=== PATIENT | female | born 1950 | race Caucasian/White ===

== ENCOUNTER 2016-06-15 03:25 | Inpatient (IN) | payer OTHER ==
[~2016-06-15] VITALS: Ht 162.6 cm; Wt 73.0 kg
[~2016-06-15 03:25] MED LIST: ADVAIR 250-501 EACH INH; CELEBREX200 M1 PO; CHANTIX0.5 M1 PO; LOSARTAN-HCTZ1 EACH PO; METOPROLOL SUCC50 M2 PO; PROAIR HFA8.5 GM INH; STIOLTO RESPIMAT4 GM INH; ZOCOR40 M1 PO
--- NOTE | 2016-06-15 14:22 | Admission Core Measures ---
Admission Meds I reviewed the following Meds: Current Medications Sig/Noemi Start time Last Medication Dose Stop Time Status Admin Acetaminophen 975 MG ONCE 06/15 0000 NR (Tylenol) 06/15 2359 Albuterol Sulfate See Dose Q2P PRN 06/15 1415 UNVr (Ventolin) Insts (1) Atorvastatin Calcium 20 MG 1700 06/15 1700 UNVr (Lipitor) Budesonide/ 2 PUF BID 06/15 2200 UNVr Formoterol Fumarate (Symbicort) Cefazolin Sodium 2,000 MG ONCE 06/15 0000 NR (Kefzol-Ancef Inj) 06/15 2359 Losartan Potassium 100 MG DAILY 06/16 1000 UNVr (Cozaar) Metoprolol Succinate 50 MG DAILY 06/16 1000 UNVr (Toprol Xl) Oxycodone HCl 10 MG ONCE 06/15 0000 NR (Roxicodone) 06/15 2359 Ropivacaine 500 ML ONCE ONE 06/15 1300 AC (NAROPIN) 06/17 0639 ON-Q Ball 1 BAG Tiotropium [place] 1 PUF DAILY 06/16 1000 UNVr (Spiriva) Varenicline 0.5 MG BID 06/15 2200 UNVr (Chantix) Dose Instructions: (1)Albuterol Sulfate (Ventolin): 1-2 PUF Acute Coronary Syndrome Inclusion Criteria ACS Diagnosis No Inpatient Core Measures LDL Reminder: If No, please order W/I first 24hr of stay Congestive Heart Failure Inclusion Criteria CHF Diagnosis No Cerebrovascular accident Inclusion Criteria CVA/TIA Diagnosis No Inpatient Core Measures Bedside Swallow Eval Reminder: If BSE failed, place ST order Antithrombotic Reminder: Order Antithrombotic Medication by end of day 2 Antithrombotic Reminder: Document Reason Antithrombotic Not ordered by end of day 2 AFIB/Flutter Reminder: If Present, add to problem list AFIB/Flutter Reminder: Order Anticoag Medication for pts with AFIB/Flutter Atherosclerosis Reminder: If Present, add to problem list LDL Reminder: If No, please order W/I first 24hr of stay PT Order Reminder: If No, please order Venous thromboembolism Inpatient Core Measures VTE Risk Factors: Age > 40, Surgery VTE Prophylaxis Ordered Inpt Mech & Pharm No Mech VTE prophylaxis d/t No contraindications No VTE Pharm Prophylaxis d/t No contraindications Inclusion Criteria - Per Current guidelines, there needs to be overlap - treatment for the first 5 days of Warfarin therapy. - Parenteral Anticoagulation (IV or SC) needs to be - given along with Warfarin therapy. VTE Diagnosis No VTE Type NONE VTE Confirmed by (Test) NONE Problem List As ranked by this Provider includes Assessment & Plan 1. Status post total knee replacement, left HOME MEDS Home Med List Albuterol Sulfate (Proair Hfa) 90 MCG HFA.AER.AD 1-2 PUF INH PRN ASTHMA ( Reported) Celecoxib (Celebrex) 200 MG CAPSULE 1 CAP PO DAILY INFLAMMATION (Reported) Fluticasone/Salmeterol (Advair 250-50 Diskus) 250 MCG-50 MCG/DOSE BLST.W.DEV 1 PUF INH BID COPD (Reported) Losartan/Hydrochlorothiazide (Losartan-Hctz 100-12.5 MG Tab) 100 MG-12.5 MG TABLET 1 TAB PO AD BP (Reported) Metoprolol Succinate (Unknown Strength) TAB.ER.24H 50 MG PO DAILY BP ( Reported) Simvastatin (Zocor*) 40 MG TABLET 1 TAB PO DAILY CHOLESTEROL (Reported) Tiotropium Br/Olodaterol HCl (Stiolto Respimat Inhal [place]) 2.5 MCG-2.5 MCG/ ACTUATION MIST.INHAL 1 PUFF INH DAILY COPD (Reported) Varenicline Tartrate (Chantix) 0.5 MG TABLET 1 TAB PO BID SMOKING CESSATION ( Reported)
--- NOTE | 2016-06-15 14:24 | Discharge Summary ---
Visit Information Visit Dates Admission Date: 06/15/16 Discharge Date: 06/22/16 Hospital Course Course Attending Physician: TL STARK MD Primary Care Physician: LUCY ARIAS,LAKESHA Tim Consulting Request: Consulting Specialty: Pulmonary Disease Hospital Course: Patient is a 65yo F who underwent elective Left Total Knee Replacement on [address] Stark. She tolerated the procedure well and was transferred to the general medical floor in stable condition. She progressed as expected, until POD #2, when she was noted to become hypoxic to 81% during ambulation. Her O2 requirements continued to increase to 4L. Bilateral LE dopplers were negative for DVT. There was some question of a filling defect on CTA of the chest, but repeat scan confirmed artifact and no evidence of PE. Pt was evaluated by Pulmonology and treated with steroids, nebulizers, and O2 therapy for COPD exacerbation and acute hypoxic respiratory failure. Complications: None Allergies: Coded Allergies: No Known Allergies (06/10/16) Significant Procedures: 06/15/2016 left total knee arthroplasty Disposition Summary Disposition Principal Diagnosis: Left knee OA/DJD Additional Diagnosis: None Discharge Disposition: home health services Discharge Instructions General Discharge Information Code Status: Full Code Patient's Diet: Resume normal diet Patient's Activity: Weight bearing as tolerated Daily physical therapy Follow-Up Instructions/Appts: Call office to schedule/confirm appointment Medications at Discharge Discharge Medications: Continue taking these medications: Simvastatin (Zocor*) 40 MG TABLET 1 Tablet ORAL DAILY Comments: DOCUMENTED PER CMR DURING PRE-SX INTERVIEW Metoprolol Succinate (Metoprolol Succinate) (Unknown Strength) TAB.ER.24H 50 Milligram ORAL DAILY Comments: TARTRATE/SUCCINATE NOT NOTED DURING PRE-SX INTERVIEW Losartan/Hydrochlorothiazide (Losartan-Hctz 100-12.5 MG Tab) 100 MG-12.5 MG TABLET 1 Tablet ORAL As Directed Comments: DOCUMENTED PER CMR DURING PRE-SX INTERVIEW Celecoxib (Celebrex) 200 MG CAPSULE 1 Capsule ORAL DAILY Comments: DOCUMENTED PER CMR DURING PRE-SX INTERVIEW Tiotropium Br/Olodaterol HCl (Stiolto Respimat Inhal [place]) 2.5 MCG-2.5 MCG/ ACTUATION MIST.INHAL 1 PUFF Inhale through mouth DAILY Comments: DOCUMENTED PER CMR DURING PRE-SX INTERVIEW Fluticasone/Salmeterol (Advair 250-50 Diskus) 250 MCG-50 MCG/DOSE BLST.W.DEV 1 Puff Inhale through mouth TWICE DAILY Comments: DOCUMENTED PER CMR DURING PRE-SX INTERVIEW Albuterol Sulfate (Proair Hfa) 90 MCG HFA.AER.AD 1-2 Puff Inhale through mouth as needed for ASTHMA Comments: DOCUMENTED PER CMR DURING PRE-SX INTERVIEW Varenicline Tartrate (Chantix) 0.5 MG TABLET 1 Tablet ORAL TWICE DAILY Comments: DOCUMENTED PER CMR DURING PRE-SX INTERVIEW Triamcinolone Acetonide (Nasacort) 55 MCG SPRAY NASAL Every Morning as needed for CONGESTION Cephalexin (Keflex) 500 MG CAPSULE 1 Capsule ORAL 4 TIMES A DAY Days = 10 Start taking the following new medications: Hydromorphone HCl (Dilaudid) 2 MG TABLET 1-2 Tablet ORAL Q4-6P as needed for PAIN Qty = 36 No Refills Polyethylene Glycol 3350 (Miralax) 17 GRAM POWD.PACK 1 Packet ORAL DAILY Qty = 14 Refills = 1 Instructions: dissolve in water Docusate Sodium (Colace) 100 MG CAPSULE 1 Capsule ORAL TWICE DAILY as needed for CONSTIPATION Qty = 30 No Refills Morphine Sulfate (Morphine Sulfate ER) 15 MG TABLET.ER 1 Tablet ORAL 2 x Daily as needed as needed for PAIN Qty = 3 No Refills Ondansetron (Zofran Odt) 4 MG TAB.RAPDIS 1 Tablet SUBLINGUAL THREE TIMES DAILY as needed for NAUSEA/VOMITING Qty = 10 No Refills Aspirin (Aspirin*) 325 MG TABLET 1 Tablet ORAL TWICE DAILY Qty = 120 No Refills Copies To: LUCY ARIAS,LAKESHA Tim
--- NOTE | 2016-06-15 14:25 | Patient Discharge Instructions ---
Discharge Instructions General Discharge Information You were seen/treated for: Left knee OA/DJD You had these procedures: 06/15/2016 left total knee arthroplasty Watch for these problems: Redness, swelling, fever, signs of infection. Uncontrolled pain, Excessive bleeding. Decreased range of motion or unable to bear weight. Chest pain, shortness of breath. Call Surgeon to remove: [place] (14 days) Do not soak the wound: Yes No bath, but you may shower: Yes Other wound care: Daily dry dressing changes or as needed Diet Continue normal diet: Yes Activity Activity Self Limited: Yes Activity Limited to: Weight bear as tolerated Additional ACTIVITY Info: Daily physical therapy Acute Coronary Syndrome Inclusion Criteria At DC or during hospital stay patient has or had the following: ACS DIAGNOSIS No Discharge Core Measures Meds if any: Prescribed or Continued at Discharge Meds if any: NOT Prescribed or Continued at Discharge Congestive Heart Failure Inclusion Criteria At DC or during hospital stay patient has or had the following: CHF DIAGNOSIS No Discharge Core Measures Meds if any: Prescribed or Continued at Discharge Meds if any: NOT Prescribed or Continued at Discharge Cerebrovascular accident Inclusion Criteria At DC or during hospital stay patient has or had the following: CVA/TIA Diagnosis No Discharge Core Measures Meds if any: Prescribed or Continued at Discharge Meds if any: NOT Prescribed or Continued at Discharge Venous thromboembolism Inclusion Criteria VTE Diagnosis No VTE Type NONE VTE Confirmed by (Test) NONE Discharge Core Measures - Per Current guidelines, there needs to be overlap - treatment for the first 5 days of Warfarin therapy. - If discharged on Warfarin prior to 5 days of - overlap therapy, the patient will need to be - assessed for post discharge needs including - *Post discharge parental anticoagulation - *Warfarin and/or parental anticoagulation education - *Follow up date to check INR post discharge At least 5 days overlap therapy as Inpatient No Meds if any: Prescribed or Continued at Discharge Note: Overlap Therapy is Warfarin and Anticoagulant Meds if any: NOT Prescribed or Continued at Discharge
[2016-06-15] MEDS ORDERED: COLACE100 M1 PO (14:27)
[2016-06-15] MEDS ORDERED: ASPIRIN325 M2 PO (14:27)
[2016-06-15] MEDS ORDERED: DILAUDID2 M1 PO (14:27)
[2016-06-15] MEDS ORDERED: MIRALAX17 G1 PO (14:27)
[2016-06-15] MEDS ORDERED: MORPHINE SULFAT15 M3 PO (14:28)
[2016-06-15] MEDS ORDERED: ZOFRAN ODT4 M1 SL (14:32)
--- NOTE | 2016-06-15 15:07 | Operative Report ---
Operative/Inv Procedure Report Surgery Date: 06/15/16 Name of Procedure: Left total knee replacement Pre-Operative Diagnosis: Primary left knee DJD Post-Operative Diagnosis: Same Estimated Blood Loss: 50ml to 100ml Surgeon/Undercover Agent: LINCOLN ARIAS,TL [place] Anesthesia: block Operative/Procedure Note Note: Description of Procedure: The patient was taken to the operating room and positively identified. After induction of spinal anesthesia and administration of appropriate pre-operative antibiotics, the patient was positioned supine on the operating room table and all bony prominences were well padded. A well-padded pneumatic tourniquet was placed on the left upper thigh. After performing a surgical timeout, the left lower extremity was prepped and draped in the usual sterile fashion. After exsanguination with Esmarch the tourniquet was inflated to 250mm of mercury. A standard medial parapatellar approach was made to the knee. This was carried down through skin and subcutaneous tissue to the level of the fascia. Meticulous hemostasis was maintained with Bovie electrocautery. The extensor mechanism and patellar retinaculum were opened sharply and the patella was everted. The infrapatellar fat was resected in order to improve exposure. Osteophytes were trimmed from the patella and femoral condyles and the patella was re-everted and tucked laterally. A medial release was performed and the cruciate ligaments were resected. The tibia was then subluxed anteriorly. Utilizing the appropriate extra-medullary guide, the proximal tibia was trimmed perpendicular to the long axis of the tibial shaft. Attention was then turned to the femur. After opening the medullary canal, the distal femoral cut was made in 6 degrees of valgus utilizing the appropriate intra-medullary guide. The extension gap was checked and found to be appropriate. The femur was then sized and the remainder of the femoral cuts were made with a size 3 4-in-1 femoral cutting guide. The flexion gap was checked and found to be symmetric and appropriate. The knee was then trialed with a size 3 femoral component, a size 3 tibial component and a size 11 mm TS polyethylene insert. The patella was not resurfaced due to its excellent preoperative condition. This yielded excellent range of motion, stability and patellar tracking. All trial components were removed and the knee was copiously irrigated with sterile saline. All components were cemented into place with [place] Simplex cement. All the components were of the [place] [employer] knee system of the above stated sizes. The knee was again irrigated after cementation. The extensor mechanism and patellar retinaculum were repaired using interrupted #1 vicryl suture. The skin was re-approximated with 2-0 vicryl and closed with kayla. A sterile dressing was applied, the tourniquet was deflated, the patient was awakened and taken to the recovery room in satisfactory condition.
[2016-06-15 17:05] VITALS: BP 144/84
[2016-06-15] MEDS ORDERED: NASACORT16.9 ML NS (18:23)
[2016-06-15 19:09] VITALS: BP 152/70
--- NOTE | 2016-06-15 20:25 | NUR ---
15:05- PT ARRIVED TO FLOOR VIA STRETCHER FROM PACU. REPORT RECEIVED FROM [employer]ET[employer] MANAGER. VSS. ON Q PUMP TO L ADDUCTOR CANAL @ 12 ML/HR. CARRANZA DRAINING CLEAR YELLOW URINE. DRESSING TO L KNEE C,D,I. ORIENTED TO ROOM AND CALL LIGHT FOR ASSIST.
[2016-06-15 21:10] VITALS: BP 124/64
[2016-06-15 23:46] VITALS: BP 118/64
--- NOTE | 2016-06-16 03:37 | NUR ---
On Q Pump to (L) adductor canal @5cm, site C/D/I. Rate increased to 14ml/hr per MD order, pain medications given for pain 01/05. VSS, afebrile. PAtient remains anxious as she states 'This was supposed to be pain free, these meds are supposed to keep me pain free.' This RN discussed with patient that pain will be managed, but pain does not 'disappear' with use of pain medications. Does report instant relief from IV Dilaudid. Will continue to monitor.
[2016-06-16 04:00] VITALS: BP 128/70
[2016-06-16 08:29] LABS: ABSOLUTE BASOPHIL COUNT 0 /CUMM (0.0-0.2); ABSOLUTE EOSINOPHIL COUNT 0.2 /CUMM (0.0-0.7); ABSOLUTE GRANULOCYTE CT 9.6 /CUMM (1.4-6.5); ABSOLUTE LYMPH COUNT 1.3 /CUMM (1.2-3.4); ABSOLUTE MONOCYTE COUNT 0.8 /CUMM (0.10-0.60); BASOPHIL % 0.3 % (0.0-2.0); EOSINOPHIL % 1.7 % (0-5); GRANULOCYTE % 80.5 % (42.2-75.2); HEMATOCRIT 35.3 % (37-47); MEAN CORPUSCULAR HGB 30.6 PG (27.0-31.0); MEAN CORPUSCULAR HGB CONC 33.5 G/DL (33.0-37.0); MEAN CORPUSCULAR VOLUME 91.3 FL (81.0-99.0); PLATELET COUNT 253 /CUMM (130-400); RED BLOOD CELL CT 3.87 /CUMM (4.20-5.40); WHITE BLOOD CELL COUNT 11.9 /CUMM (4.8-10.8)
--- NOTE | 2016-06-16 10:15 | RADIOLOGY REPORT ---
EXAMINATION: XR KNEE, LEFT CLINICAL INFORMATION: Status post left TKA COMPARISON: None. TECHNIQUE: 2 views of the left knee FINDINGS: There is a total left knee arthroplasty. The distal femoral component articulates appropriately with the tibial plateau and patellar components. No periprosthetic lucency or fracture. Postoperative soft tissue gas noted. Prominent gas extends distally beyond the [id number] of this study. Overlying skin kayla anteriorly. IMPRESSION: Total left knee arthroplasty in typical positioning and alignment.
--- NOTE | 2016-06-16 10:16 | NUR ---
Physical Therapy: Patient refused treatment session secondary to significant complaints of pain. Surgical PA asked PT to try coming back again later. Will follow-up as a appropriate.
--- NOTE | 2016-06-16 10:22 | PN- Orthopedic ---
Subjective Subjective: Pt just returned from xray She is in significant pain, angry that she received pain meds late Denies any nausea Objective Vital Signs and I&Os Vital Signs Date Time Temp Pulse Resp B/P Pulse O2 O2 Flow FiO2 Ox Delivery Rate 06/16 0400 98.2 98 18 128/70 93 Nasal 2.0L Cannula 06/16 0000 Nasal 2.0L Cannula 06/15 2346 98.1 92 20 118/64 94 Nasal Cannula 06/15 2110 98.2 94 20 124/64 92 Nasal Cannula 06/15 1909 97.5 96 20 152/70 94 Nasal Cannula 06/15 1847 94 Nasal 2.0L Cannula 06/15 1832 Nasal 2.0L Cannula 06/15 1705 98.1 85 18 144/84 94 Nasal 2.0L Cannula Intake & Output 06/16 1600 06/16 0800 06/16 0000 06/15 1600 06/15 0800 06/15 0000 Intake Total 800 1850 Output Total 350 200 Balance 450 1650 Intake, IV 600 1100 Intake, Oral 200 750 Output, Urine 350 200 Patient 161 lb Weight Physical Exam: vss afebrile General: alert and oriented, angry and in pain at surgical site Chest: clear anteriorly bilaterally Abd: soft, good bs Ext: warm, no edema, positive sensate, no calf tenderness Wound: dressed, dry, on Q in place Neuro: tremor - chronic per patient Current Medications: Current Medications Sig/Noemi Start time Last Medication Dose Route Stop Time Status Admin Acetaminophen 650 MG Q4P PRN 06/15 1730 AC PO Acetaminophen 975 MG ONCE 06/15 0000 DC PO 06/15 2359 Albuterol Sulfate 2 PUF Q4-6 PRN PRN 06/15 1415 AC INH Aspirin 325 MG BID 06/15 2200 AC 06/15 PO 2104 Atorvastatin Calcium 20 MG 1700 06/15 1700 AC 06/15 PO 1951 Budesonide/ 2 PUF BID 06/15 2200 AC 06/15 Formoterol Fumarate INH 2115 Cefazolin Sodium 2 GM IQ8 06/15 1600 DC N/A 1 UNIT IV 06/16 0029 Cefazolin Sodium 2 GM IQ8 06/15 1600 DC 06/16 N/A 1 UNIT IV 06/16 0029 0331 Cefazolin Sodium 2,000 MG ONCE 06/15 0000 DC IV 06/15 2359 Diphenhydramine HCl 50 MG .STK-MED ONE 06/15 1511 DC IM 06/15 1512 Docusate Sodium 100 MG DAILY AC 06/16 0700 AC 06/16 PO 0612 Fentanyl Citrate 100 MCG .STK-MED ONE 06/15 1221 DC IM 06/15 1222 Fluticasone 1 SPRAY DAILY NEEDED 06/15 1845 AC Propionate [place] Hydrochlorothiazide 12.5 MG DAILY 06/16 1000 AC PO Hydromorphone HCl 2 MG Q3P PRN 06/16 1030 UNVr IV Hydromorphone HCl 2 MG Q4P PRN 06/15 1730 AC PO Hydromorphone HCl 4 MG Q4P PRN 06/15 1730 AC PO Hydromorphone HCl 0.5 MG Q3P PRN 06/15 1730 DC 06/16 IV 0804 Ketorolac 30 MG ONCE ONE 06/16 1015 UNVr Tromethamine IV 06/16 1016 Ketorolac 15 MG Q8P PRN 06/15 1730 DC Tromethamine IM 06/18 1717 Losartan Potassium 100 MG DAILY 06/16 1000 AC PO Metoprolol Succinate 50 MG DAILY 06/16 1000 AC PO Midazolam HCl 4 MG .STK-MED ONE 06/15 1246 DC IM 06/15 1247 Nicotine 21 MG DAILY 06/15 1806 AC TOP Ondansetron HCl 4 MG Q6P PRN 06/15 1730 AC IV Ondansetron HCl 4 MG .STK-MED ONE 06/15 1608 DC IV 06/15 1609 Oxycodone HCl 10 MG .STK-MED ONE 06/15 1607 DC PO 06/15 1608 Oxycodone HCl 10 MG ONCE 06/15 0000 DC PO 06/15 2359 Polyethylene Glycol 17 GM DAILY 06/16 1000 AC PO Ropivacaine 500 ML ONCE ONE 06/15 1300 DC ON-Q Ball 1 BAG INJ 06/17 0639 Sodium Chloride 1,000 ML .[id number] 06/15 1730 AC 06/16 IV 0543 Tiotropium [place] 1 PUF DAILY 06/16 1000 AC INH Tranexamic Acid 2,000 MG .STK-MED ONE 06/15 1221 DC IV 06/15 1222 Varenicline 0.5 MG BID 06/15 2200 AC 06/15 PO 2104 Assessment/Plan Assessment/Plan 65 yo female s/p L TKR pod 1 Pain management Increase breakthrough dilaudid to 2mg IV q3p Toradol - 30mg IV now dilaudid po Will add ms contin later today - do not want to give at same time as above Will discuss with nursing - pt is upset Core Measures/Miscellaneous Venous Thromboembolism VTE Risk Factors: Age > 40, Surgery VTE Contraindications: No Contraindications VTE Prophylaxis Ordered Inpt: Mech & Pharm VTE Diagnosis: No VTE Type: NONE VTE Confirmed by (Test): NONE Beta Lois Is Beta Lois a Home Med? Yes If Yes, Was This Ordered Today? Yes Antibiotics Is Patient on Antibiotics? No
[2016-06-16 14:19] VITALS: BP 114/80
[2016-06-16 22:14] VITALS: BP 118/70
[2016-06-17 06:30] VITALS: BP 112/68
--- NOTE | 2016-06-17 07:38 | PN- Orthopedic ---
Subjective Subjective: The patient was seen this morning postoperatively day #2. She reports that her pain is a little better than yesterday but still not adequately controlled with current pain regiment. She no other complaints current time and denied any chest pain or difficulty breathing. Objective Vital Signs and I&Os Vital Signs Date Time Temp Pulse Resp B/P Pulse O2 O2 Flow FiO2 Ox Delivery Rate 06/17 0630 98.5 90 22 112/68 95 Nasal Cannula 06/17 0000 92 Nasal 2.5L Cannula 06/16 2214 98.3 95 22 118/70 92 Nasal 2.5L Cannula 06/16 1419 98.5 100 18 114/80 90 Nasal 2.0L Cannula 06/16 1111 98 140/68 06/16 1110 98 140/68 06/16 0800 Nasal 2.0L Cannula Intake & Output 06/17 0800 06/17 0000 06/16 1600 06/16 0800 06/16 0000 06/15 1600 Intake Total 500 9979 823 8376 Output Total 526 747 0332 350 200 Balance -850 100 0 450 1650 Intake, IV 300 958 761 4790 Intake, Oral 200 600 200 750 Number 0 Bowel Movements Output, Urine 375 124 2164 350 200 Patient 161 lb Weight Physical Exam: Gen.: Alert and in no obvious distress Skin: Warm and dry Extremities: Bilateral lower extremities are warm without calf tenderness or significant edema. Gross motor and sensory were intact. Left knee surgical dressing was changed and slightly blood-tinged otherwise intact. The incision was healing well without signs of infection and surgical clips were in place. Assessment/Plan Assessment/Plan Assessment: 65-year-old female status post left total knee arthroplasty postoperative day #2. The patient is progressing as expected however pain still remains an issue for her. Plan: Add Valium 5 mg by mouth 3 times a day when necessary to current pain regiment Out of bed and ambulate with physical therapy GI and DVT prophylaxis Daily dry dressing change to surgical site Follow-up PT recommendations with regards discharge planning Core Measures/Miscellaneous Venous Thromboembolism VTE Risk Factors: Age > 40, Surgery VTE Contraindications: No Contraindications VTE Prophylaxis Ordered Inpt: Mech & Pharm VTE Diagnosis: No VTE Type: NONE VTE Confirmed by (Test): NONE Beta Lois Is Beta Lois a Home Med? Yes If Yes, Was This Ordered Today? Yes Antibiotics Is Patient on Antibiotics? No
[2016-06-17 13:34] VITALS: BP 130/70
[2016-06-17 22:19] VITALS: BP 112/58
[2016-06-18 07:05] VITALS: BP 128/60
--- NOTE | 2016-06-18 11:39 | NUR ---
0930-PT COMPLAINING OF SOB. ON 2L NC AT 88%. VENTOLIN INH GIVEN. LUNGS DIMINISHED/WHEEZY AT BASES. SURG MI QUIGLEY NOTIIFED. RESPIRATORY CARE ORDERED. 1000-RESPIRATORY AT BEDSIDE. O2 2L @ 92%. HR 100-110. INHALERS REVIEWED WITH PATIENT. SURG MENDEZ QUIGLEY NOTIFIED OF ABOVE AND TO ASSESS AT BEDSIDE. 1100- PT ASSESSED BY SURG MENDEZ. CXR AND ULTRASOUND OF LLE ORDERED. PT WITH +1 EDEMA TO L LEG.
[2016-06-18] MEDS ORDERED: KEFLEX500 M1 PO (12:14)
--- NOTE | 2016-06-18 12:19 | PN- Orthopedic ---
Subjective Subjective: Pt had an episode of hypoxia yesterday to 81%, requiring initiation of O2 via nasal cannula. She was relatively stable overnight, but desat to 87% today on 2L upon ambulation. Pt smoked daily until just before surgery. She reports that she typically uses her inhalers at around 4am everyday. Per nursing reports, she exibits significant anxiety in the morning while she awaits her inhalers. At this time, pt denies significant pain or shortness of breath. She is eating well and voids spontaneously. Denies WALKER, dizziness, CP, cough. Objective Vital Signs and I&Os Vital Signs Date Time Temp Pulse Resp B/P Pulse O2 O2 Flow FiO2 Ox Delivery Rate 06/18 0942 88 142/70 06/18 0942 88 142/70 06/18 0705 98.1 94 20 128/60 93 Nasal 2.0L Cannula 06/18 0000 Nasal 2.0L Cannula 06/17 2219 98.5 99 20 112/58 93 Nasal 2.0L Cannula 06/17 1600 Nasal 2.0L Cannula 06/17 1334 98.8 91 20 130/70 93 Nasal 2.0L Cannula Intake & Output 06/18 1600 06/18 0800 06/18 0000 06/17 1600 06/17 0800 06/17 0000 Intake Total 309 086 1802 400 500 Output Total 724 261 3006 850 400 Balance -360 -560 750 -450 100 Intake, IV 100 300 Intake, Oral 117 085 9567 300 200 Number 0 Bowel Movements Output, Urine 657 435 9402 850 400 Physical Exam: Gen.: Patient is awake and alert. She appears in no acute distress. Cardiac: Regular, but slightly tachycardic. Heart rate during my exam was 102. Pulmonary: Lungs are clear to auscultation bilaterally. Decreased breath sounds are noted at the bases. No significant rails or wheezing are appreciated, but patient just had a respiratory treatment prior to my arrival. Abdomen: Soft, but moderately distended. No significant tenderness. Extremities: There is left lower extremity edema, within expected limits. Dressing is clean, dry, and intact. No significant erythema or drainage or appreciated. tenderness is appreciated. Strength of dorsiflexion and plantar flexion are 4-5. No labs were done yesterday or today. Assessment/Plan Assessment/Plan Patient is a 65-year-old female with a history of COPD, asthma, hypertension, and hyperlipidemia, who recently quit smoking just prior to surgery and is now postoperative day #3 status post left total knee replacement. Her postoperative course was uncomplicated until yesterday when her O2 requirements increased. He is not on oxygen at home preoperatively. Plan: -Hold discharge. -TRC's renewed. Encourage incentive spirometer. -Check CTA of the chest to rule out PE. This will also identify any other acute pulmonary issue. Consider medicine consult if negative for additional recommendations. ?Should B lois induced bronchospasm be considered? -Also check a CBC. The WBC on 06/16/16 was 11.9. Patient states that she was on antibiotics prior to admission for a UTI. This is not listed on her home med rec list, but according to pharmacy claim history, it appears she was started on cephalexin 500 mg 4 times a day 10 days. We will restart this now. -Continue pain control with po dilaudid as needed. -ASA 325 bid for DVT ppx. -Bowel regimen with Colace and Miralax. Still awaiting BM. -This was discussed with Dr. Cole, who will be in to see the pt sometime today. Core Measures/Miscellaneous Venous Thromboembolism VTE Risk Factors: Age > 40, Surgery VTE Contraindications: No Contraindications VTE Prophylaxis Ordered Inpt: Mech & Pharm VTE Diagnosis: No VTE Type: NONE VTE Confirmed by (Test): NONE Beta Lois Is Beta Lois a Home Med? Yes If Yes, Was This Ordered Today? Yes Antibiotics Is Patient on Antibiotics? Yes
[2016-06-18 13:47] VITALS: BP 122/70
--- NOTE | 2016-06-18 14:49 | CT SCAN REPORT ---
EXAMINATION: CT CHEST PE STUDY CLINICAL INFORMATION: Hypoxia. Evaluate for pulmonary embolism. History of left breast cancer. COMPARISON: None. TECHNIQUE: Prior to contrast administration, localization images were obtained. After the administration of 95 mL of intravenous Optiray 350, multidetector CT volume acquisition of the chest was performed. 3-D postprocessing was performed with multiplanar reconstructions and MIP images obtained at the acquisition workstation. DLP: 473.74 mGy-cm. FINDINGS: Pulmonary arteries: The bolus timing on this study is acceptable for visualization of the pulmonary arterial tree. In a segmental branch of the right upper lobe pulmonary artery (series 4, image 183 - 178), an elongated long segment filling defect is seen. This finding is indeterminate as there is no associated enlargement of this vessel and the distal branches of this vessel appear to enhance normally. There is also extensive horizontally oriented beam hardening artifact seen in this region, which may be accounting for this finding as well. There are no additional intraluminal pulmonary arterial filling defects present to suggest pulmonary embolism. Lungs: There appears to be mild centrilobular emphysema. Underlying the left breast in the anterior left upper lobe and lingula, subpleural reticular opacities with tiny cyst formations are noted, consistent with post radiation fibrosis. There are bibasilar areas of mild volume loss and atelectasis. No pulmonary nodules, masses, pleural effusion or pneumothorax. The central airways are patent. Aorta and heart: The heart is normal in size. The mediastinum, aorta and great vessels are normal. There is no pericardial effusion Lymphatic structures: There is no lymphadenopathy. Breasts: There are postoperative changes seen in the upper outer quadrant of the left breast, consistent with prior lumpectomy. Upper abdomen: There is a 2.3 cm diameter left adrenal mass with mean attenuation values of 23.2 Hounsfield units. There is a smaller 1.9 x 1.5 cm right adrenal mass, with mean attenuation values of 39 Hounsfield units. These masses are indeterminate in etiology. Limited evaluation of the upper abdominal viscera demonstrates no other focal abnormality. Bones: Multilevel moderate vertebral spondylosis is seen. IMPRESSION: 1. Subtle long segment filling defect is seen within a branch of the right upper lobe pulmonary artery. As discussed above, it is unclear whether this represents a nonocclusive pulmonary embolism versus artifact related to extensive beam hardening. Remainder of the pulmonary arterial tree unremarkable with no evidence of pulmonary embolism seen. 2. Mild emphysema with bibasilar subsegmental atelectasis and changes of postradiation fibrosis in the anterior and anterolateral left upper lung. 3. Bilateral indeterminate adrenal masses are seen. Further characterization with adrenal CT scan with and without contrast is recommended. 4. Status post left breast lumpectomy.
[2016-06-18 15:04] LABS: ABSOLUTE BASOPHIL COUNT 0.1 /CUMM (0.0-0.2); ABSOLUTE EOSINOPHIL COUNT 0.5 /CUMM (0.0-0.7); ABSOLUTE GRANULOCYTE CT 8.1 /CUMM (1.4-6.5); ABSOLUTE LYMPH COUNT 1.4 /CUMM (1.2-3.4); ABSOLUTE MONOCYTE COUNT 0.9 /CUMM (0.10-0.60); BASOPHIL % 0.5 % (0.0-2.0); EOSINOPHIL % 4.6 % (0-5); GRANULOCYTE % 73.9 % (42.2-75.2); HEMATOCRIT 31.5 % (37-47); MEAN CORPUSCULAR HGB 30.4 PG (27.0-31.0); MEAN CORPUSCULAR VOLUME 92.1 FL (81.0-99.0); MEAN PLATELET VOLUME 7.5 FL (7.4-10.4); PLATELET COUNT 248 /CUMM (130-400); RBC DISTRIBUTION WIDTH 14.5 % (11.5-14.5); RED BLOOD CELL CT 3.42 /CUMM (4.20-5.40); WHITE BLOOD CELL COUNT 10.9 /CUMM (4.8-10.8)
--- NOTE | 2016-06-18 16:12 | NUR ---
1600-PER DR. STARK, PT HAD CTA. PT CONTINUES WITH SOB AND REQUESTING RESCUE INHALER SIGNIFICANTLY BEFORE IT IS DUE. SURG MENDEZ QUIGLEY AT BEDSIDE AND ASSESSED PT. CTA SHOWED POSSIBLE PULMONARY EMBOLISM/ POSSIBLE ARTIFACT. PT O2 SAT 86% ON 2L NC, HR 110. RESPIRATORY CALLED AND TO SPEAK TO MANUELA QUIGLEY. DR. STARK CALLED BY SURG PA TO UPDATE.
--- NOTE | 2016-06-18 16:52 | NUR ---
1645: RESPIRATORY ADMINISTERED NEBULIZER. PT 93% ON 4L. HR 100. PER SURG MENDEZ QUIGLEY, DR STARK TO ASSESS PT AND DR BENNETT TO ASSESS PT.
--- NOTE | 2016-06-18 16:56 | Event Note ---
Event Note Event Note: Pt has been experiencing persistent hypoxia, despite 2L of O2 via nasal cannula and frequent use of her inhalers. She has been somewhat tachycardic in the 100' s. On exam, she has distant breath sounds with expiratory wheezes bilaterally. She continues to deny chest pain. CTA of the chest revealed possible concern for a filling defect in the pulmonary artery of the RUL, but the finding could be due to artifact. I spoke with the radiologist, who also consulted with another radiologist, and they agree that no definitive answer can be given. They suggested repeat CT if symptoms persist, but also keeping in mind the effect of dye load on the kidneys. Of note, there is also a finding of left-sided radiation fibrosis. I have been in touch with Dr. Cole regarding the above concerns and he suggests/agrees to the following plan: -Respiratory therapy initiating nebulizer treatments and suggested increased O2 to 4L. O2 sat responded-93%. -Pulmonary consult: I spoke with Dr. Barber, who will see the patient. In the meantime, he suggested bilateral LE dopplers to r/o DVT. If positive, will anticoagulate. If negative, will consider further workup. If steroids are recommended for COPD exacerbation, consider risk of healing issues, but ok to proceed if duration is short and strongly suggested. -Will change DVT ppx to Eliquis 2.5 mg bid. Discontinue ASA. -Consider holding B sandro, as this can potentiate bronchospasm. -Will start IVF in case the need for re-CT arises. Will add on bun/cr to AM labs , but change to stat if re-CT considered for today. Update at 8:20 pm: Pt was seen by both Dr. Cole and Dr. Barber. Bilateral LE dopplers were negative for DVT. It was determined that the dye load given during the previous exam was relatively low, so the decision was made to proceed with repeat CTA of the chest. Similar filling defects were seen on this exam, but the radiologist feels this is more likely due to artifact. Dr. Barber is aware. We will continue with TRC's, nebs, O2 therapy at 4L NC, and Solumedrol 40 q8h as per pulmonary recommendations. Pt will be updated of these findings.
--- NOTE | 2016-06-18 17:55 | Cons- Pulmonary ---
General Information and HPI Allergies/Medications Allergies: Coded Allergies: No Known Allergies (06/10/16) Home Med List: Albuterol Sulfate (Proair Hfa) 90 MCG HFA.AER.AD 1-2 PUF INH PRN ASTHMA ( Reported) Aspirin (Aspirin*) 325 MG TABLET 1 TAB PO BID BLOOD THINNER Celecoxib (Celebrex) 200 MG CAPSULE 1 CAP PO DAILY INFLAMMATION (Reported) Cephalexin (Keflex) 500 MG CAPSULE 1 CAP PO FOUR TIMES A DAY UTI (Reported) Docusate Sodium (Colace) 100 MG CAPSULE 1 CAP PO BID PRN CONSTIPATION Fluticasone/Salmeterol (Advair 250-50 Diskus) 250 MCG-50 MCG/DOSE BLST.W.DEV 1 PUF INH BID COPD (Reported) Hydromorphone HCl (Dilaudid) 2 MG TABLET 1-2 TAB PO Q4-6P PRN PAIN Losartan/Hydrochlorothiazide (Losartan-Hctz 100-12.5 MG Tab) 100 MG-12.5 MG TABLET 1 TAB PO AD BP (Reported) Metoprolol Succinate (Unknown Strength) TAB.ER.24H 50 MG PO DAILY BP ( Reported) Morphine Sulfate (Morphine Sulfate ER) 15 MG TABLET.ER 1 TAB PO BIDP PRN PAIN Ondansetron (Zofran Odt) 4 MG TAB.RAPDIS 1 TAB SL TID PRN NAUSEA/VOMITING Polyethylene Glycol 3350 (Miralax) 17 GRAM POWD.PACK 1 PAC PO DAILY CONSTIPATION dissolve in water Simvastatin (Zocor*) 40 MG TABLET 1 TAB PO DAILY CHOLESTEROL (Reported) Tiotropium Br/Olodaterol HCl (Stiolto Respimat Inhal [place]) 2.5 MCG-2.5 MCG/ ACTUATION MIST.INHAL 1 PUFF INH DAILY COPD (Reported) Triamcinolone Acetonide (Nasacort) 55 MCG SPRAY CONGESTION (Reported) Varenicline Tartrate (Chantix) 0.5 MG TABLET 1 TAB PO BID SMOKING CESSATION ( Reported) Past History Medical History Blood Transfusion Hx: No Neurological: TREMOR EENT: sinusitis Cardiovascular: hypertension, hyperlipidemia Respiratory: bronchitis, COPD Gastrointestinal: NONE Hepatic: NONE Renal: NONE Musculoskeletal: osteoarthritis Psychiatric: anxiety Endocrine: NONE Blood Disorders: NONE Cancer(s): 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 Home Smoking Status: Current Everyday Smoker Assessment/Plan Consult Acknowledgment - Thank you for your consult request.
--- NOTE | 2016-06-18 18:03 | Cons- Pulmonary ---
General Information and HPI Consulting Request Date of Consult: 06/18/16 Requested By: Rin Reason for Consult: hypoxic respiratory failure History of Present Illness: This 65-year-old woman actively smoking 1 pack per day who is seen for hypoxic respiratory failure following elective knee replacement. She smokes 1 pack per day and has been told of COPD on baseline bronchodilators was continuing to smoke up until her surgery. There are no baseline oxygen saturations. Since surgery she is required between 2 and 4 L. She desaturated with ambulation and concern was raised over possible pulmonary embolism. A CTA was done which showed a abnormal right upper lobe segmental artery. This was felt to represent either a segmental pulmonary embolism or possible artifact due to overlying streak. Study was reviewed with Kinga Case MD who was uncertain as to whether this represented a true finding. Patient has no hemoptysis or pleuritic chest pain. She has requiring nebs. Allergies/Medications Allergies: Coded Allergies: No Known Allergies (06/10/16) Home Med List: Albuterol Sulfate (Proair Hfa) 90 MCG HFA.AER.AD 1-2 PUF INH PRN ASTHMA ( Reported) Aspirin (Aspirin*) 325 MG TABLET 1 TAB PO BID BLOOD THINNER Celecoxib (Celebrex) 200 MG CAPSULE 1 CAP PO DAILY INFLAMMATION (Reported) Cephalexin (Keflex) 500 MG CAPSULE 1 CAP PO FOUR TIMES A DAY UTI (Reported) Docusate Sodium (Colace) 100 MG CAPSULE 1 CAP PO BID PRN CONSTIPATION Fluticasone/Salmeterol (Advair 250-50 Diskus) 250 MCG-50 MCG/DOSE BLST.W.DEV 1 PUF INH BID COPD (Reported) Hydromorphone HCl (Dilaudid) 2 MG TABLET 1-2 TAB PO Q4-6P PRN PAIN Losartan/Hydrochlorothiazide (Losartan-Hctz 100-12.5 MG Tab) 100 MG-12.5 MG TABLET 1 TAB PO AD BP (Reported) Metoprolol Succinate (Unknown Strength) TAB.ER.24H 50 MG PO DAILY BP ( Reported) Morphine Sulfate (Morphine Sulfate ER) 15 MG TABLET.ER 1 TAB PO BIDP PRN PAIN Ondansetron (Zofran Odt) 4 MG TAB.RAPDIS 1 TAB SL TID PRN NAUSEA/VOMITING Polyethylene Glycol 3350 (Miralax) 17 GRAM POWD.PACK 1 PAC PO DAILY CONSTIPATION dissolve in water Simvastatin (Zocor*) 40 MG TABLET 1 TAB PO DAILY CHOLESTEROL (Reported) Tiotropium Br/Olodaterol HCl (Stiolto Respimat Inhal [place]) 2.5 MCG-2.5 MCG/ ACTUATION MIST.INHAL 1 PUFF INH DAILY COPD (Reported) Triamcinolone Acetonide (Nasacort) 55 MCG SPRAY CONGESTION (Reported) Varenicline Tartrate (Chantix) 0.5 MG TABLET 1 TAB PO BID SMOKING CESSATION ( Reported) Review of Systems Review of Systems Constitutional: Denies: chills, fever. Cardiovascular: Denies: chest pain, syncope. Respiratory: Reports: cough, short of breath, sputum production (clear), wheezing (clear). Denies: hemoptysis. GI: Denies: abdominal pain, diarrhea, melena. 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 Home Smoking Status: Current Everyday Smoker Exam & Diagnostic Data Last 24 Hrs of Vital Signs/I&O Vital Signs Date Time Temp Pulse Resp B/P Pulse O2 O2 Flow FiO2 Ox Delivery Rate 06/18 1653 100 18 93 Nasal 4.0L Cannula 06/18 1645 93 Nasal 4.0L Cannula 06/18 1347 98.2 86 18 122/70 91 Nasal 2.0L Cannula 06/18 0942 88 142/70 06/18 0942 88 142/70 06/18 0800 92 Nasal 2.0L Cannula 06/18 0705 98.1 94 20 128/60 93 Nasal 2.0L Cannula 06/18 0000 Nasal 2.0L Cannula 06/17 2219 98.5 99 20 112/58 93 Nasal 2.0L Cannula Intake & Output 06/18 1600 06/18 0800 06/18 0000 Intake Total 720 240 240 Output Total 1000 600 800 Balance -280 -360 -560 Intake, Oral 720 240 240 Output, Urine 1000 600 800 Patient is comfortable lying in bed oxygen saturation 4 L 93% HNT exam shows no jugular venous distention or adenopathy exam for chest shows faint bilateral expiratory wheezing cardiac exam shows normal S1 and S2 without murmurs, exam is soft nontender extremities have no calf tenderness and trace edema Last 48 Hrs of Labs/Akil: Laboratory Tests 06/18/16 1452: CBC w Diff NO MAN DIFF REQ, RBC 3.42 L, MCV 92.1, MCH 30.4, RDW 14.5, MPV 7.5, Gran % 73.9, Lymphocytes % 12.9 L, Monocytes % 8.1, Eosinophils % 4.6, Basophils % 0.5, Absolute Granulocytes 8.1 H, Absolute Lymphocytes 1.4, Absolute Monocytes 0.9 H, Absolute Eosinophils 0.5, Absolute Basophils 0.1, PUBS MCHC 33.0 Assessment/Plan Impression/Plan: 65-year-old woman with probable COPD actively smoking has required continuous low-flow oxygen since elective knee surgery on June 15. Physical desaturation a CTA was done today which was felt to be inconclusive for pulmonary thromboembolism. Unfortunately there are no baseline oxygen saturations to know what her preoperative saturation was. Given her significant risk factors of status post surgery immobility and smoking the issue of thromboembolism requires clarification. I discussed treatment plan with Dr. Gar and a lower extremity Doppler ultrasound will be done this is positive full anticoagulation will be instituted. If it is negative a repeat CTA will be done. Dr. Tubbs reported only 95 mL of dye given and she feels comfortable repeating her CTA this evening. Because of her bronchospasm begin Solu-Medrol 40 mg IV every 8 hours with the consent of Dr. Gar. Begin gentle hydration in view of dye administration. Recommendations: Begin Solu-Medrol 40 mg every 8 hours. Perform lower extremity venous Doppler ultrasound which will be done this evening. If this is positive for anticoagulation will be instituted if negative repeat CTA will be done. Gentle hydration will be started. Consult Acknowledgment - Thank you for your consult request.
--- NOTE | 2016-06-18 19:06 | ULTRASOUND REPORT ---
EXAMINATION: BILATERAL LOWER EXTREMITY VENOUS ULTRASOUND CLINICAL INFORMATION: Bleeding risk and postoperative patient. Hypoxia. Inconclusive CTA. Evaluate for DVT. COMPARISON: CT pulmonary angiogram dated 06/18/2016. TECHNIQUE: Doppler spectral analysis and color flow Doppler imaging was performed of the lower extremities. Compression and augmentation maneuvers were performed. FINDINGS: The right and left common femoral vein, greater saphenous vein takeoff, femoral vein, and popliteal vein are normally compressible with normal augmentation responses and phasic changes seen with Doppler imaging. The midcalf peroneal and posterior tibial veins are patent as well. No popliteal cyst is seen. IMPRESSION: No evidence of deep venous thrombosis in the right or left lower extremity.
--- NOTE | 2016-06-18 20:10 | CT SCAN REPORT ---
EXAMINATION: CT CHEST PE STUDY CLINICAL INFORMATION: Hypoxia. Repeat study due to inconclusive findings on previous CT pulmonary angiogram. Bilateral lower extremity venous Doppler ultrasound negative for DVT. Evaluate for pulmonary embolism. COMPARISON: CT pulmonary angiogram dated 06/18/2016. TECHNIQUE: Prior to contrast administration, localization images were obtained. After the administration of 60 mL of intravenous Optiray 350, multidetector CT volume acquisition of the chest was performed. 3-D postprocessing was performed with multiplanar reconstructions and MIP images obtained at the acquisition workstation. DLP: 469.19 mGy-cm. FINDINGS: Pulmonary arteries: The bolus timing on this study is acceptable for visualization of the pulmonary arterial tree. On this repeat exam, the previously identified hypoenhancing segmental branch in the right upper lobe has better opacification. There is still some linear hypodensity seen extending through the lumen of this vessel (series 2, image 193). However, within reviewing these findings on the reconstructed sequences (example series 201, image 40) triangular margins are demonstrated and findings are most consistent with beam hardening artifact. There are now small filling defects seen in an additional segmental branch to the right upper lobe (series 2, image 162 and 176), previously appearing normal and also demonstrating angular linear margins on reconstructed sequences, most consistent with beam hardening artifact. There are no definite intraluminal pulmonary arterial filling defects present to suggest pulmonary embolism in the main pulmonary artery, right and left main pulmonary artery, lobar and segmental branches. Lungs: The lungs again demonstrate mild scattered areas of atelectasis in both lower lobes. Mild post radiation fibrosis is seen in the anterior subpleural left upper lobe. No pulmonary nodules, masses, pleural effusion or pneumothorax. The central airways are patent. Aorta and heart: The heart is normal in size. The mediastinum, aorta and great vessels are normal. There is no pericardial effusion Lymphatic structures: There are several borderline sized mediastinal lymph nodes, measuring just under 1 cm in short axis. In the right hilum, a borderline sized lymph node is seen, measuring 1 cm in short axis. No axillary adenopathy is seen. Upper abdomen: Bilateral adrenal masses are again seen in the upper abdomen, incompletely characterized. Limited evaluation of the upper abdominal viscera demonstrates no focal abnormality. Chest wall: Post lumpectomy changes are seen in the left breast with several kayla and scarring seen. Bones: Multilevel degenerative changes are seen in the spine. IMPRESSION: 1. Small pseudofilling defects are seen in segmental branches of the right upper lobe as discussed above. These have angulated margins and are most consistent with extensive beam hardening artifact related to hyper concentrated contrast in the superior vena cava. No evidence of pulmonary embolism is seen. 2. Scattered areas of atelectasis in both lung bases. 3. Mild radiation fibrosis in the anterior subpleural left upper lobe. 4. Borderline size mediastinal and right hilar lymph nodes. 5. Bilateral adrenal masses, incompletely characterized. Recommend dedicated adrenal CT scan with and without contrast for further assessment. 6. Post lumpectomy changes in the left breast. Findings discussed with Kathleen Lucero 06/18/2016, 7:[address] Ignacio Barber 06/18/2016, 7:40 PM. Pulmonary arterial findings also reviewed with Dr. Barraza at Dr. Barber's request.
--- NOTE | 2016-06-18 20:33 | NUR ---
1744-PT LEFT FLOOR VIA STRETCHER FOR ULTRASOUND OF BLE. IF NEGATIVE, PT WILL HAVE CTA CHEST PER SURG MENDEZ QUIGLEY 1899- PT RETURNED TO FLOOR VIA STRETCHER. PT HAD ULTRASOUND AND CTA.
[2016-06-18 21:41] VITALS: BP 110/60
[2016-06-18] MEDS ORDERED: ELIQUIS2.5 M1 PO (23:01)
[2016-06-19 06:23] VITALS: BP 116/70
[2016-06-19 08:01] LABS: ABSOLUTE BASOPHIL COUNT 0 /CUMM (0.0-0.2); ABSOLUTE EOSINOPHIL COUNT 0 /CUMM (0.0-0.7); ABSOLUTE LYMPH COUNT 0.7 /CUMM (1.2-3.4); ABSOLUTE MONOCYTE COUNT 0.2 /CUMM (0.10-0.60); BASOPHIL % 0.1 % (0.0-2.0); EOSINOPHIL % 0.1 % (0-5); GRANULOCYTE % 89.8 % (42.2-75.2); HEMATOCRIT 30.8 % (37-47); MEAN CORPUSCULAR HGB 30.6 PG (27.0-31.0); MEAN CORPUSCULAR HGB CONC 33.5 G/DL (33.0-37.0); MEAN CORPUSCULAR VOLUME 91.2 FL (81.0-99.0); MEAN PLATELET VOLUME 8.2 FL (7.4-10.4); PLATELET COUNT 244 /CUMM (130-400); RBC DISTRIBUTION WIDTH 14.1 % (11.5-14.5); RED BLOOD CELL CT 3.38 /CUMM (4.20-5.40); WHITE BLOOD CELL COUNT 8.9 /CUMM (4.8-10.8)
--- NOTE | 2016-06-19 08:53 | NUR ---
0845- PT AMBULATED WITH PHYSICAL THERAPY. O2 SAT 96% AT REST ON 4L. O2 SAT 86% ON 4L AFTER AMBULATING 15 FEET. RECOVERED TO 92% ON 4L AFTER 1 MINUTE.
--- NOTE | 2016-06-19 09:16 | PN- Orthopedic ---
Subjective Subjective: NAEO. Patient states she feels better and is breathing much better than she was yesterday. Pain controlled in her LLE, denies numbness/tingling. Tolerating diet without n/v. +flatus, no BM. OOB with PT. Denies CP/SOB. CTA's yesterday showed no PE. Objective Vital Signs and I&Os Vital Signs Date Time Temp Pulse Resp B/P Pulse O2 O2 Flow FiO2 Ox Delivery Rate 06/19 0623 97.4 77 20 116/70 90 Nasal 4.0L Cannula 06/19 0000 92 Nasal 4.0L Cannula 06/18 2141 98.1 108 20 110/60 22 06/18 1653 100 18 93 Nasal 4.0L Cannula 06/18 1645 93 Nasal 4.0L Cannula 06/18 1347 98.2 86 18 122/70 91 Nasal 2.0L Cannula 06/18 0942 88 142/70 06/18 0942 88 142/70 Intake & Output 06/19 1600 06/19 0800 06/19 0000 06/18 1600 06/18 0800 06/18 0000 Intake Total 1040 640 720 240 240 Output Total 200 1100 1000 600 800 Balance -200 1040 -460 -280 -360 -560 Intake, IV 800 400 Intake, Oral 240 240 720 240 240 Output, Urine 200 1100 1000 600 800 Physical Exam: General: NAD, comfortable, A&Ox3. sitting up in bed eating breakfast. Chest: NRD, breathing comfortably on 2L NC. RRR. Abdomen: soft, nontender, nondistended. Ext: Left knee incision c/d/i. No calve swelling/TTP, neurovascularly intact bilateral lower extremities Current Medications: Current Medications Sig/Noemi Start time Last Medication Dose Route Stop Time Status Admin Acetaminophen 650 MG Q4P PRN 06/15 1730 AC PO Albuterol Sulfate 3 ML BID 06/18 2200 AC 06/18 INH 1737 Albuterol Sulfate 2 PUF Q4-6 PRN PRN 06/15 1415 AC 06/18 INH 1259 Apixaban 2.5 MG BID 06/18 1551 AC 06/18 PO 2126 Aspirin 325 MG BID 06/15 2200 DC 06/18 PO 0939 Atorvastatin Calcium 20 MG 1700 06/15 1700 AC 06/18 PO 1711 Budesonide/ 2 PUF 0400,1800 06/18 1800 AC 06/19 Formoterol Fumarate INH 0403 Budesonide/ 2 PUF BID 06/15 2200 DC 06/18 Formoterol Fumarate INH 0938 Calcium Carbonate 500 MG DAILY 06/18 1749 AC 06/18 PO 1958 Cephalexin 500 MG FOUR TIMES A DAY 06/18 1400 AC 06/18 PO 2126 Diazepam 5 MG Q8P PRN 06/17 0745 AC PO Docusate Sodium 100 MG DAILY AC 06/16 0700 AC 06/19 PO 0403 Fluticasone 1 SPRAY DAILY NEEDED 06/15 1845 AC 06/19 Propionate [place] 0855 Hydrochlorothiazide 12.5 MG DAILY 06/16 1000 AC PO Hydromorphone HCl 0.5 MG Q3P PRN 06/16 1400 AC 06/17 IV 0612 Hydromorphone HCl 2 MG Q4P PRN 06/15 1730 AC PO Hydromorphone HCl 4 MG Q4P PRN 06/15 1730 AC 06/19 PO 0856 Ketorolac 15 MG Q8P PRN 06/16 1800 DC 06/17 Tromethamine IV 1654 Losartan Potassium 100 MG DAILY 06/16 1000 AC 06/18 PO 0942 Methylprednisolone 40 MG Q8H 06/18 1800 AC 06/19 IV 0146 Metoprolol Succinate 50 MG DAILY 06/16 1000 AC 06/18 PO 0942 Morphine Sulfate 15 MG BID 06/16 2200 AC 06/18 PO 2126 Nicotine 21 MG DAILY 06/15 1806 AC TOP Ondansetron HCl 4 MG Q6P PRN 06/15 1730 AC IV Patient Medication 1 UNIT ONE NR 06/18 1615 MN Teaching ED 06/18 1630 Polyethylene Glycol 17 GM DAILY 06/16 1000 AC 06/18 PO 0942 Sodium Chloride 1,000 ML Q10H 06/18 1800 DC 06/19 IV 0403 Tiotropium [place] 1 PUF DAILY@0400 06/19 0400 AC 06/19 INH 0403 Tiotropium [place] 1 PUF DAILY 06/16 1000 DC 06/18 INH 0938 Varenicline 0.5 MG BID 06/17 2200 AC 06/18 PO 2126 Results Last 48 Hours of Labs: Laboratory Tests 06/19 06/18 0655 1452 Chemistry Sodium (137 - 145 mmol/L) 137 Potassium (3.5 - 5.1 mmol/L) 4.6 Chloride (98 - 107 mmol/L) 99 Carbon Dioxide (22 - 30 mmol/L) 31 H Anion Gap (5 - 16) 7 BUN (7 - 17 mg/dL) 10 Creatinine (0.5 - 1.0 mg/dL) 0.6 Estimated GFR (>60 ml/min) > 60 BUN/Creatinine Ratio (7 - 25 %) 16.7 Hematology CBC w Diff Pending NO MAN DIFF REQ WBC (4.8 - 10.8 /CUMM) Pending 10.9 H RBC (4.20 - 5.40 /CUMM) Pending 3.42 L Hgb (12.0 - 16.0 G/DL) Pending 10.4 L Hct (37 - 47 %) Pending 31.5 L MCV (81.0 - 99.0 FL) Pending 92.1 MCH (27.0 - 31.0 PG) Pending 30.4 RDW (11.5 - 14.5 %) Pending 14.5 Plt Count (130 - 400 /CUMM) Pending 248 MPV (7.4 - 10.4 FL) Pending 7.5 Gran % (42.2 - 75.2 %) 73.9 Lymphocytes % (20.5 - 51.1 %) 12.9 L Monocytes % (1.7 - 9.3 %) 8.1 Eosinophils % (0 - 5 %) 4.6 Basophils % (0.0 - 2.0 %) 0.5 Absolute Granulocytes (1.4 - 6.5 /CUMM) 8.1 H Absolute Lymphocytes (1.2 - 3.4 /CUMM) 1.4 Absolute Monocytes (0.10 - 0.60 /CUMM) 0.9 H Absolute Eosinophils (0.0 - 0.7 /CUMM) 0.5 Absolute Basophils (0.0 - 0.2 /CUMM) 0.1 PUBS MCHC (33.0 - 37.0 G/DL) Pending 33.0 Assessment/Plan Assessment/Plan 65yo F POD#4 s/p left TKA. Patient with improved respiratory status after initiating TRC with nebulizer treatments, spiriva, and solumedrol. - pain control - PRN zofran - continue diet - eliquis 2.5mg PO BID and ALPS for DVT PPx - OOB with PT - f/u pulmonary - dc planning - will d/w attending Core Measures/Miscellaneous Venous Thromboembolism VTE Risk Factors: Age > 40, Surgery VTE Contraindications: No Contraindications VTE Prophylaxis Ordered Inpt: Mech & Pharm VTE Diagnosis: No VTE Type: NONE VTE Confirmed by (Test): NONE Beta Lois Is Beta Lois a Home Med? Yes If Yes, Was This Ordered Today? Yes Antibiotics Is Patient on Antibiotics? Yes If Yes: infection (UTI)
--- NOTE | 2016-06-19 12:10 | PN- Pulmonary ---
Subjective HPI/Critical Care Issues: Patient feels improved shortness of breath is improved. CTA negative for pulmonary embolism. There is basilar atelectasis and minor radiation fibrosis Objective Current Medications: Current Medications Sig/Noemi Start time Last Medication Dose Route Stop Time Status Admin Acetaminophen 650 MG Q4P PRN 06/15 1730 AC PO Albuterol Sulfate 3 ML BID 06/18 2200 AC 06/19 INH 1103 Albuterol Sulfate 2 PUF Q4-6 PRN PRN 06/15 1415 AC 06/19 INH 1019 Apixaban 2.5 MG BID 06/18 1551 AC 06/19 PO 1021 Aspirin 325 MG BID 06/15 2200 DC 06/18 PO 0939 Atorvastatin Calcium 20 MG 1700 06/15 1700 AC 06/18 PO 1711 Budesonide/ 2 PUF 0400,1800 06/18 1800 AC 06/19 Formoterol Fumarate INH 0403 Budesonide/ 2 PUF BID 06/15 2200 DC 06/18 Formoterol Fumarate INH 0938 Calcium Carbonate 500 MG DAILY 06/18 1749 AC 06/18 PO 1958 Cephalexin 500 MG FOUR TIMES A DAY 06/18 1400 AC 06/19 PO 1021 Diazepam 5 MG Q8P PRN 06/17 0745 AC PO Docusate Sodium 100 MG DAILY AC 06/16 0700 AC 06/19 PO 0403 Fluticasone 1 SPRAY DAILY NEEDED 06/15 1845 AC 06/19 Propionate BEVERLEY 0855 Hydrochlorothiazide 12.5 MG DAILY 06/16 1000 AC PO Hydromorphone HCl 0.5 MG Q3P PRN 06/16 1400 AC 06/17 IV 0612 Hydromorphone HCl 2 MG Q4P PRN 06/15 1730 AC PO Hydromorphone HCl 4 MG Q4P PRN 06/15 1730 AC 06/19 PO 0856 Losartan Potassium 100 MG DAILY 06/16 1000 AC 06/19 PO 1021 Methylprednisolone 40 MG Q8H 06/18 1800 AC 06/19 IV 1020 Metoprolol Succinate 50 MG DAILY 06/16 1000 AC 06/19 PO 1021 Morphine Sulfate 15 MG BID 06/16 2200 AC 06/19 PO 1021 Nicotine 21 MG DAILY 06/15 1806 AC TOP Ondansetron HCl 4 MG Q6P PRN 06/15 1730 AC IV Patient Medication 1 UNIT ONE NR 06/18 1615 DC Teaching ED 06/18 1630 Polyethylene Glycol 17 GM DAILY 06/16 1000 AC 06/19 PO 1021 Sodium Chloride 1,000 ML Q10H 06/18 1800 DC 06/19 IV 0403 Tiotropium [place] 1 PUF DAILY@0400 06/19 0400 AC 06/19 INH 0403 Tiotropium [place] 1 PUF DAILY 06/16 1000 DC 06/18 INH 0938 Varenicline 0.5 MG BID 06/17 2200 AC 06/19 PO 1021 Vital Signs & I&O Last 24 Hrs of Vitals and I&O: Vital Signs Date Time Temp Pulse Resp B/P Pulse O2 O2 Flow FiO2 Ox Delivery Rate 06/19 1105 97 Nasal 4.0L Cannula 06/19 1021 90 136/72 06/19 1021 90 136/72 06/19 0800 93 Nasal 4.0L Cannula 06/19 0623 97.4 77 20 116/70 90 Nasal 4.0L Cannula 06/19 0000 92 Nasal 4.0L Cannula 06/18 2141 98.1 108 20 110/60 22 06/18 1653 100 18 93 Nasal 4.0L Cannula 06/18 1645 93 Nasal 4.0L Cannula 06/18 1347 98.2 86 18 122/70 91 Nasal 2.0L Cannula Intake & Output 06/19 1600 06/19 0800 06/19 0000 Intake Total 1040 640 Output Total 400 1100 Balance -400 1040 -460 Intake, IV 800 400 Intake, Oral 240 240 Number 1 Bowel Movements Output, Urine 400 1100 Oxygen saturation 3 L 97% exam for chest shows diminished breath sounds are no wheezes heard cardiac exam shows regular S1 and S2 without murmurs Impression/Plan Impression/Plan Impression/Plan: 65-year-old woman with probable COPD actively smoking as persistent respiratory failure secondary to COPD atelectasis. Pulmonary spirometry was found obtained in early May which showed FEV1 of 48% of predicted. No baseline oxygen saturations available. Recommendations: Taper FiO2 his saturations allow maintaining at least 92%. DC Solu-Medrol begin prednisone 40 mg a day. Continue inhaled bronchodilators. Mobilize out of bed
[2016-06-19 13:51] VITALS: BP 150/90
[2016-06-19 21:51] VITALS: BP 138/70
[2016-06-20 06:54] VITALS: BP 132/70
--- NOTE | 2016-06-20 06:58 | PN- Orthopedic ---
Subjective Subjective: POD#5 S/P LEFT TKA POST OP HYPOXIA FEELING MUCH BETTER THIS AM DENIES CP, N+V NOTICIBLY SOB WHEN TALKING(BASELINE UNCLEAR) STARTED PREDNISONE 40MG PO DAILY YESTERDAY O2SAT NOW 95% ON 4L STATES SHE HAS NOT AMBULATED MONDAY Objective Vital Signs and I&Os Vital Signs Date Time Temp Pulse Resp B/P Pulse O2 O2 Flow FiO2 Ox Delivery Rate 06/20 0000 Nasal 4.0L Cannula 06/19 2151 98.0 92 20 138/70 95 06/19 2038 94 Nasal 4.0L Cannula 06/19 1351 97.9 98 18 150/90 94 Nasal 4.0L Cannula 06/19 1105 97 Nasal 4.0L Cannula 06/19 1021 90 136/72 06/19 1021 90 136/72 06/19 0800 93 Nasal 4.0L Cannula Intake & Output 06/20 0800 06/20 0000 06/19 1600 06/19 0800 06/19 0000 06/18 1600 Intake Total 905 777 5985 640 720 Output Total 987 863 4595 1000 Balance -915 68 2076 -460 -280 Intake, IV 800 400 Intake, Oral 100 720 240 240 720 Number 2 Bowel Movements Output, Urine 248 465 9603 1000 Physical Exam: CV: RRR LUNGS: DIFFUSE WHEEZES ABD: SOFT, +BS EXT: LEFT KNEE WOUND C/D/I NO CALF SWELLING OR TENDERNESS TO PALP BILAT DISTAL CMS GROSSLY INTACT Assessment/Plan Assessment/Plan ORTHO STABLE PRIMARY ISSUES ARE PULMONARY PLAN ELIQUIS 2.5 MG PO BID FOR DVT PROPHYLAXIS OOB WITH PT WEEN O2SAT CONT PULMONARY RECS STILL DESIRES TO GO HOME Core Measures/Miscellaneous Venous Thromboembolism VTE Risk Factors: Age > 40, Surgery VTE Contraindications: No Contraindications VTE Prophylaxis Ordered Inpt: Mech & Pharm VTE Diagnosis: No VTE Type: NONE VTE Confirmed by (Test): NONE Beta Lois Is Beta Lois a Home Med? Yes If Yes, Was This Ordered Today? Yes Antibiotics Is Patient on Antibiotics? Yes If Yes: infection (UTI)
--- NOTE | 2016-06-20 07:58 | PN- Pulmonary ---
Subjective HPI/Critical Care Issues: Patient awake alert oxygen saturation saturations 100% on 4 L. Is desaturated to 89 with ambulation yesterday morning. She has increasing tremors but is overusing her albuterol according to nursing. CTA over read and there appears to be no evidence of PE. Objective Current Medications: Current Medications Sig/Noemi Start time Last Medication Dose Route Stop Time Status Admin Acetaminophen 650 MG .STK-MED ONE 06/19 1630 DC PO 06/19 1631 Acetaminophen 650 MG Q4P PRN 06/15 1730 AC 06/19 PO 1635 Albuterol Sulfate 3 ML BID 06/18 2200 AC 06/19 INH 2019 Albuterol Sulfate 2 PUF Q4-6 PRN PRN 06/15 1415 AC 06/19 INH 1745 Apixaban 2.5 MG BID 06/18 1551 AC 06/19 PO 2111 Atorvastatin Calcium 20 MG 1700 06/15 1700 AC 06/19 PO 1635 Budesonide/ 2 PUF 0400,1800 06/18 1800 AC 06/20 Formoterol Fumarate INH 0655 Calcium Carbonate 500 MG DAILY 06/18 1749 AC 06/18 PO 1958 Cephalexin 500 MG FOUR TIMES A DAY 06/18 1400 AC 06/19 PO 2050 Diazepam 5 MG Q8P PRN 06/17 0745 AC PO Docusate Sodium 100 MG DAILY AC 06/16 0700 AC 06/20 PO 0653 Fluticasone 1 SPRAY DAILY NEEDED 06/15 1845 AC 06/19 Propionate [place] 0855 Hydrochlorothiazide 12.5 MG DAILY 06/16 1000 AC PO Hydromorphone HCl 0.5 MG Q3P PRN 06/16 1400 AC 06/17 IV 0612 Hydromorphone HCl 2 MG Q4P PRN 06/15 1730 AC PO Hydromorphone HCl 4 MG Q4P PRN 06/15 1730 AC 06/20 PO 0658 Losartan Potassium 100 MG DAILY 06/16 1000 AC 06/19 PO 1021 Methylprednisolone 40 MG Q8H 06/18 1800 DC 06/19 IV 1020 Metoprolol Succinate 50 MG DAILY 06/16 1000 AC 06/19 PO 1021 Morphine Sulfate 15 MG BID 06/16 2200 AC 06/19 PO 2111 Nicotine 21 MG DAILY 06/15 1806 AC TOP Ondansetron HCl 4 MG Q6P PRN 06/15 1730 AC IV Polyethylene Glycol 17 GM DAILY 06/16 1000 AC 06/19 PO 1021 Prednisone 40 MG DAILY 06/19 1400 AC 06/19 PO 1527 Sodium Chloride 1,000 ML Q10H 06/18 1800 DC 06/19 IV 0403 Tiotropium [place] 1 PUF DAILY@0400 06/19 0400 AC 06/20 INH 0655 Varenicline 0.5 MG BID 06/17 2200 AC 06/19 PO 2111 Vital Signs & I&O Last 24 Hrs of Vitals and I&O: Vital Signs Date Time Temp Pulse Resp B/P Pulse O2 O2 Flow FiO2 Ox Delivery Rate 06/20 0654 97.8 93 20 132/70 100 Nasal 4.0L Cannula 06/20 0000 Nasal 4.0L Cannula 06/19 2151 98.0 92 20 138/70 95 06/19 2038 94 Nasal 4.0L Cannula 06/19 1351 97.9 98 18 150/90 94 Nasal 4.0L Cannula 06/19 1105 97 Nasal 4.0L Cannula 06/19 1021 90 136/72 06/19 1021 90 136/72 06/19 0800 93 Nasal 4.0L Cannula Intake & Output 06/20 0800 06/20 0000 06/19 1600 Intake Total 100 720 Output Total 800 700 Balance -700 20 Intake, Oral 100 720 Number 2 Bowel Movements Output, Urine 800 700 Oxygen saturation 4 L 100% exam for chest shows clear lung soler are no wheezes heard cardiac exam shows normal S1 and S2 without murmurs Impression/Plan Impression/Plan Impression/Plan: 65-year-old woman with probable COPD actively smoking as persistent respiratory failure secondary to COPD atelectasis. Pulmonary spirometry was found obtained in early May which showed FEV1 of 48% of predicted. No baseline oxygen saturations available. Recommendations: Taper FiO2 his saturations allow maintaining at least 92%. DC Solu-Medrol begin prednisone 40 mg a day. Continue inhaled bronchodilators. Mobilize out of bed and assess oxygen saturations while ambulating. Begin prednisone taper to 30 mg today.
--- NOTE | 2016-06-20 10:39 | NUR ---
CALLED INTO ROOM BY PATIENT FOR BLEEDING COMING FROM [facility], MENDEZ BARRIENTOS AWARE, INGRID-PAD PLACED ON PT. WILL CONTINUE TO MONITOR.
--- NOTE | 2016-06-20 11:47 | Event Note ---
Event Note Event Note: Called by RN due to vaginal bleeding that started this morning. Pt has been post -menopausal for almost 20 years. She admits to a hx of Fibroids many years ago, which have been surgically removed. There has been no recent follow up by Gynecology. We will hold eliquis for now and restart ASA 325 bid. Will discuss with attending. If bleeding doesn't resolve on its own, consider [employer] consult. Pt does not have a otm consultant that she sees.
[2016-06-20] MEDS ORDERED: ASPIRIN325 M2 PO (12:50)
[2016-06-20 13:47] VITALS: BP 108/60
--- NOTE | 2016-06-20 19:42 | NUR ---
PT AMBULATING WITH 3L NC; O2 93
--- NOTE | 2016-06-20 19:50 | NUR ---
PT C/O PAIN TO LLE; ANKLE SWOLLEN; PA AWARE AND AT BEDSIDE; ICE IN PLACE; +CMS; WILL CONTINUE TO MONITOR
[2016-06-20 22:42] VITALS: BP 134/62
[2016-06-21 06:36] VITALS: BP 180/74
--- NOTE | 2016-06-21 07:00 | NUR ---
PT B/P 180/76, NOTIFIED, 407. HTN MEDICATIONS ADMINISTERED EARLY.
--- NOTE | 2016-06-21 07:22 | PN- Pulmonary ---
Subjective HPI/Critical Care Issues: Patient continues to have exercise-induced desaturation. Oxygen saturation at rest have improved. She has scant sputum and no chest pain. Objective Current Medications: Current Medications Sig/Noemi Start time Last Medication Dose Route Stop Time Status Admin Acetaminophen 650 MG Q4P PRN 06/15 1730 AC 06/19 PO 1635 Albuterol Sulfate 3 ML BID 06/18 2200 AC 06/20 INH 1839 Albuterol Sulfate 2 PUF Q4-6 PRN PRN 06/15 1415 AC 06/19 INH 1745 Apixaban 2.5 MG BID 06/18 1551 DC 06/20 PO 1006 Aspirin 325 MG BID 06/20 2200 AC 06/20 PO 2131 Atorvastatin Calcium 20 MG 1700 06/15 1700 AC 06/20 PO 1733 Budesonide/ 2 PUF 0400,1800 06/18 1800 AC 06/21 Formoterol Fumarate INH 0513 Calcium Carbonate 500 MG DAILY 06/18 1749 AC 06/20 PO 1006 Cephalexin 500 MG FOUR TIMES A DAY 06/18 1400 AC 06/20 PO 2131 Diazepam 5 MG Q8P PRN 06/17 0745 AC PO Docusate Sodium 100 MG DAILY AC 06/16 0700 AC 06/21 PO 0503 Fluticasone 1 SPRAY DAILY NEEDED 06/15 1845 AC 06/21 Propionate [place]EVER[place] 0503 Hydrochlorothiazide 12.5 MG DAILY 06/16 1000 AC 06/21 PO 0525 Hydromorphone HCl 0.5 MG Q3P PRN 06/16 1400 AC 06/17 IV 0612 Hydromorphone HCl 2 MG Q4P PRN 06/15 1730 AC PO Hydromorphone HCl 4 MG Q4P PRN 06/15 1730 AC 06/21 PO 0523 Losartan Potassium 100 MG DAILY 06/16 1000 AC 06/21 PO 0525 Metoprolol Succinate 50 MG DAILY 06/16 1000 AC 06/21 PO 0525 Morphine Sulfate 15 MG BID 06/16 2200 AC 06/20 PO 2131 Nicotine 21 MG DAILY 06/15 1806 AC TOP Ondansetron HCl 4 MG Q6P PRN 06/15 1730 AC IV Polyethylene Glycol 17 GM DAILY 06/16 1000 AC 06/20 PO 1006 Prednisone 30 MG ONCE ONE 06/20 1000 DC 06/20 PO 06/20 1001 1006 Prednisone 40 MG DAILY 06/19 1400 DC 06/19 PO 1527 Tiotropium [place] 1 PUF DAILY@0400 06/19 0400 AC 06/21 INH 0506 Varenicline 0.5 MG BID 06/17 2200 AC 06/20 PO 2130 Vital Signs & I&O Last 24 Hrs of Vitals and I&O: Vital Signs Date Time Temp Pulse Resp B/P Pulse O2 O2 Flow FiO2 Ox Delivery Rate 06/21 0636 98.5 87 20 180/74 92 Nasal Cannula 06/21 0525 180/76 06/21 0000 94 Nasal 3.0L Cannula 06/20 2242 97.6 92 20 134/62 93 Nasal 2.0L Cannula 06/20 1840 94 Nasal 2.0L Cannula 06/20 1347 99.1 68 20 108/60 99 Nasal 2.0L Cannula 06/20 1105 95 Nasal 2.0L Cannula 06/20 1006 93 132/70 06/20 1006 93 132/70 06/20 0800 96 Nasal 3.0L Cannula Intake & Output 06/21 0800 06/21 0000 06/20 1600 Intake Total 250 480 Output Total 1200 1400 Balance 250 -1200 -920 Intake, IV 10 Intake, Oral 240 480 Number 1 0 Bowel Movements Output, Urine 1200 1400 Patient 161 lb Weight Oxygen saturation varying between 92 and 99%. Exam for chest shows diminished breath sounds there are no wheezes cardiac exam shows regular S1 and S2 without murmurs Impression/Plan Impression/Plan Impression/Plan: 65-year-old woman with probable COPD actively smoking as persistent respiratory failure secondary to COPD atelectasis. Pulmonary spirometry was found obtained in early May which showed FEV1 of 48% of predicted. No baseline oxygen saturations available. She is clinically improved but continues to remain oxygen dependent Recommendations: Taper FiO2 his saturations allow maintaining at least 92%. DC Solu-Medrol begin prednisone 40 mg a day. Continue inhaled bronchodilators. Mobilize out of bed and assess oxygen saturations while ambulating. Begin prednisone taper to 30 mg today. Continue prednisone. Repeat PA and lateral chest x-ray. If Patient remains oxygen dependent may need to consider short-term rehabilitation.
[2016-06-21 08:03] VITALS: BP 150/80
[2016-06-21 09:34] LABS: ABSOLUTE BASOPHIL COUNT 0.1 /CUMM (0.0-0.2); ABSOLUTE EOSINOPHIL COUNT 0.2 /CUMM (0.0-0.7); ABSOLUTE GRANULOCYTE CT 7.7 /CUMM (1.4-6.5); ABSOLUTE MONOCYTE COUNT 0.4 /CUMM (0.10-0.60); BASOPHIL % 0.6 % (0.0-2.0); EOSINOPHIL % 1.7 % (0-5); GRANULOCYTE % 67.8 % (42.2-75.2); HEMATOCRIT 34.5 % (37-47); MEAN CORPUSCULAR HGB 30.4 PG (27.0-31.0); MEAN CORPUSCULAR HGB CONC 33.2 G/DL (33.0-37.0); MEAN CORPUSCULAR VOLUME 91.6 FL (81.0-99.0); MEAN PLATELET VOLUME 7.7 FL (7.4-10.4); RBC DISTRIBUTION WIDTH 14.3 % (11.5-14.5); RED BLOOD CELL CT 3.77 /CUMM (4.20-5.40); WHITE BLOOD CELL COUNT 11.4 /CUMM (4.8-10.8)
[2016-06-21 09:37] LABS: PLATELET COUNT 401 /CUMM (130-400)
--- NOTE | 2016-06-21 10:49 | RADIOLOGY REPORT ---
EXAMINATION: XR CHEST CLINICAL INFORMATION: Hypoxia. Chronic obstructive pulmonary disease. COMPARISON: CT chest, 06/18/2016. TECHNIQUE: PA and lateral views of the chest were obtained. FINDINGS: Lungs are hyperexpanded from emphysematous disease. There is linear opacity of subsegmental atelectasis within the right middle lobe. No evidence of airspace opacification, pulmonary edema, pleural effusion or pneumothorax. Cardiac silhouette is normal in size. Thoracic aorta is calcified. No acute findings within the degenerated thoracic spine. Surgical changes from left breast lumpectomy. IMPRESSION: 1. Chronic obstructive pulmonary disease. 2. No radiographic evidence of acute pneumonia.
[2016-06-21 14:03] VITALS: BP 150/80
[2016-06-21 22:21] VITALS: BP 138/60
[2016-06-22 06:40] VITALS: BP 132/70
--- NOTE | 2016-06-22 07:30 | PN- Orthopedic ---
Subjective Subjective: s/p left tka post op hypoxia improving on steroid taper comfortable today no major complaints denies cp, sob, no n+v with diet Objective Vital Signs and I&Os Vital Signs Date Time Temp Pulse Resp B/P Pulse O2 O2 Flow FiO2 Ox Delivery Rate 06/22 0640 97.6 82 19 132/70 93 Nasal Cannula 06/22 0000 Nasal 1.0L Cannula 06/21 2221 97.4 83 18 138/60 94 Nasal 1.0L Cannula 06/21 2010 97 Nasal 2.0L Cannula 06/21 1600 90 Nasal 2.0L Cannula 06/21 1403 98.1 83 18 150/80 91 Nasal 2.0L Cannula 06/21 1154 Nasal 2.0L Cannula 06/21 1147 Nasal 2.0L Cannula 06/21 1131 Nasal 2.0L Cannula 06/21 0910 Nasal 2.0L Cannula 06/21 0803 150/80 06/21 0800 Nasal 2.0L Cannula Intake & Output 06/22 0800 06/22 0000 06/21 1600 06/21 0800 06/21 0000 06/20 1600 Intake Total 250 360 250 480 Output Total 1050 1100 1200 1400 Balance -800 -740 250 -1200 -920 Intake, IV 10 Intake, Oral 250 360 240 480 Number 1 1 0 Bowel Movements Output, Urine 1050 1100 1200 1400 Patient 161 lb Weight Physical Exam: cv: rrr lungs: clear abd: +bs, soft ext: no calf tenderness bilat wound c/d/i distal cms intact Assessment/Plan Assessment/Plan ortho stable decreased O2 requirements plan ween O2 cont steroid taper finalize pulm recs plan for d/c today f/u with case management Core Measures/Miscellaneous Venous Thromboembolism VTE Risk Factors: Age > 40, Surgery VTE Contraindications: No Contraindications VTE Prophylaxis Ordered Inpt: Mech & Pharm VTE Diagnosis: No VTE Type: NONE VTE Confirmed by (Test): NONE Beta Lois Is Beta Lois a Home Med? Yes If Yes, Was This Ordered Today? Yes Antibiotics Is Patient on Antibiotics? Yes If Yes: infection (UTI)
--- NOTE | 2016-06-22 09:59 | PN- Pulmonary ---
Subjective HPI/Critical Care Issues: Patient feels well oxygen has been able to be tapered to 1 L Objective Current Medications: Current Medications Sig/Noemi Start time Last Medication Dose Route Stop Time Status Admin Acetaminophen 650 MG Q4P PRN 06/15 1730 AC 06/19 PO 1635 Albuterol Sulfate 3 ML BID 06/18 2200 AC 06/22 INH 0903 Albuterol Sulfate 2 PUF Q4-6 PRN PRN 06/15 1415 AC 06/19 INH 1745 Aspirin 325 MG BID 06/20 2200 AC 06/22 PO 0908 Atorvastatin Calcium 20 MG 1700 06/15 1700 AC 06/21 PO 1732 Budesonide/ 2 PUF 0400,1800 06/18 1800 AC 06/22 Formoterol Fumarate INH 0547 Calcium Carbonate 500 MG DAILY 06/18 1749 AC 06/22 PO 0909 Cephalexin 500 MG FOUR TIMES A DAY 06/18 1400 AC 06/22 PO 0908 Diazepam 5 MG Q8P PRN 06/17 0745 AC PO Docusate Sodium 100 MG DAILY AC 06/16 0700 AC 06/22 PO 0547 Fluticasone 1 SPRAY DAILY NEEDED 06/15 1845 AC 06/22 Propionate [place]EVER[place] 0907 Hydrochlorothiazide 12.5 MG DAILY 06/16 1000 AC 06/22 PO 0908 Hydromorphone HCl 0.5 MG Q3P PRN 06/16 1400 AC 06/17 IV 0612 Hydromorphone HCl 2 MG Q4P PRN 06/15 1730 AC 06/22 PO 0603 Hydromorphone HCl 4 MG Q4P PRN 06/15 1730 AC 06/21 PO 2139 Losartan Potassium 100 MG DAILY 06/16 1000 AC 06/22 PO 0908 Metoprolol Succinate 50 MG DAILY 06/16 1000 AC 06/22 PO 0908 Morphine Sulfate 15 MG BID 06/16 2200 AC 06/22 PO 0907 Nicotine 21 MG DAILY 06/15 1806 AC TOP Ondansetron HCl 4 MG Q6P PRN 06/15 1730 AC IV Polyethylene Glycol 17 GM DAILY 06/16 1000 AC 06/22 PO 0907 Tiotropium [place] 1 PUF DAILY@0400 06/19 0400 AC 06/22 INH 0548 Varenicline 0.5 MG BID 06/17 2200 AC 06/22 PO 0909 Vital Signs & I&O Last 24 Hrs of Vitals and I&O: Vital Signs Date Time Temp Pulse Resp B/P Pulse O2 O2 Flow FiO2 Ox Delivery Rate 06/22 0908 82 132/70 06/22 0908 82 132/70 06/22 0905 96 Nasal 1.0L Cannula 06/22 0640 97.6 82 19 132/70 93 Nasal Cannula 06/22 0000 Nasal 1.0L Cannula 06/21 2221 97.4 83 18 138/60 94 Nasal 1.0L Cannula 06/21 2010 97 Nasal 2.0L Cannula 06/21 1600 90 Nasal 2.0L Cannula 06/21 1403 98.1 83 18 150/80 91 Nasal 2.0L Cannula 06/21 1154 Nasal 2.0L Cannula 06/21 1147 Nasal 2.0L Cannula 06/21 1131 Nasal 2.0L Cannula Intake & Output 06/22 1600 06/22 0800 06/22 0000 Intake Total 400 250 Output Total 300 1050 Balance 100 -800 Intake, Oral 400 250 Output, Urine 300 1050 Oxygen saturation on 1 L 96% exam for chest shows rare faint expiratory wheezing Impression/Plan Impression/Plan Impression/Plan: 65-year-old woman with probable COPD actively smoking as persistent respiratory failure secondary to COPD atelectasis. Pulmonary spirometry was found obtained in early May which showed FEV1 of 48% of predicted. No baseline oxygen saturations available. She is clinically improved but continues to remain oxygen dependent Recommendations: Taper FiO2 his saturations allow maintaining at least 92%. Continue prednisone taper. Patient will be seen in the office next week for further oxygen tapering and outpatient pulmonary function testing
[2016-06-22] MEDS ORDERED: ALBUTEROL2.5 MG/3 M INH/SOL ×2 (11:18→11:29)
[2016-06-22] MEDS ORDERED: PREDNISONE10 M2 PO (11:20)
--- NOTE | 2016-06-22 11:58 | NUR ---
PT ON 1L NC @ 97% RESTING, PT AMBULATED ON 1L NC O2 @ 90%, PT AMBULATED ON RA O2 @ 77%. MD PELAEZ. WILL CONTINUE TO MONITOR.
[2016-06-22 15:01] VITALS: BP 130/70
[2016-06-22 15:18] VITALS: BP 160/62
--- NOTE | 2016-06-22 18:45 | NUR ---
PATIENT DISCHARGED HOME. DISCHARGE INSTRUCTION GIVEN TO PATIENT AND DAUGHTER. ALL QUESTIONS ANSWERED. PATIENT WHEELED TO FRONT LOBBY BY STAFF.
== END 2016-06-22 17:57 | disposition home health service (06) | DRG 469 ==
LOC: ENRESERVDT → ENRESERVTM → 2NA 03:25 → SDA 03:25 → ENPENDDIS 03:25 → 2NA 17:05
PROVIDERS: Physician Assistant Surgical; ADMIT Orthopaedic Surgery
PROC: 0SRD0J9 Replacement of Left Knee Joint with Synthetic Substitute, Cemented, Open Approach (ICD-10-PCS; principal; 2016-06-15)
DX: M17.12 Unilateral primary osteoarthritis, left knee (principal); J95.821 Acute postprocedural respiratory failure; J44.1 Chronic obstructive pulmonary disease with (acute) exacerbation; J98.11 Atelectasis; J95.89 Other postprocedural complications and disorders of respiratory system, not elsewhere classified; Z72.0 Tobacco use; Y83.9 Surgical procedure, unspecified as the cause of abnormal reaction of the patient, or of later complication, without mention of misadventure at the time of the procedure
CPT/HCPCS: 2NASP; 36415; 73560-LT; 82436; 87086; 88305; 93970; 97110-GO; 97116-GO; 97161-GP; 97530-GO; C1713; J0690; J1200; J1885; J2405; J2795; J2920; J3101; J3490; J7512